=== PATIENT | female | born 1960 | race Caucasian/White ===

== ENCOUNTER → 2024-12-02 13:05 | Outpatient (BNVA) | payer MEDICARE, MEDICAID, SELFPAY | PROVIDERS: PCP Physician Assistant; Referring Provider Physician Assistant; Visit Provider Physician Assistant Surgical | DX: J44.9 Chronic obstructive pulmonary disease, unspecified (principal); R06.02 Shortness of breath; F17.210 Nicotine dependence, cigarettes, uncomplicated | CPT/HCPCS: 36415; 99203 ==

== ENCOUNTER 2024-12-02 15:00 | Outpatient (REF) | payer MEDICARE, MEDICAID, SELFPAY ==
[2024-12-02 16:07] LABS: Abs Immature Grans 0.04 10^3/uL (0.0-0.06); HCT 42.1 % (36.0-46.0); HGB 13.7 g/dL (11.2-15.7); Immature Grans % 0.4 %; MCH 27.6 pg (27.0-33.0); MCHC 32.5 % (32.0-36.0); MCV 85 fL (80-95); MPV 8.9 fL (8.0-11.0); Platelet Count 519 10^3/uL (130-400); RBC 4.97 10^6/uL (3.93-5.22); RDW 15.9 % (11.7-14.6); RDW-SD 48.8 fL; WBC 9.77 10^3/uL (4.4-10.8)
== END 2024-12-02 15:01 | disposition home or self-care (01) ==
LOC: LBN 15:00
PROVIDERS: PCP Physician Assistant; Visit Provider Physician Assistant Surgical
DX: J44.9 Chronic obstructive pulmonary disease, unspecified (principal)
CPT/HCPCS: 82785; 85025

== ENCOUNTER → 2025-01-29 12:23 | Outpatient (BNVA) | payer MEDICARE, MEDICAID, SELFPAY | PROVIDERS: PCP Physician Assistant; Referring Provider Physician Assistant; Visit Provider Physician Assistant Surgical | DX: J45.909 Unspecified asthma, uncomplicated (principal); R06.02 Shortness of breath; J44.9 Chronic obstructive pulmonary disease, unspecified; F17.210 Nicotine dependence, cigarettes, uncomplicated | CPT/HCPCS: 99214; 36415 ==

== ENCOUNTER 2025-01-29 13:46 | Outpatient (REF) | payer MEDICARE, MEDICAID, SELFPAY ==
[2025-02-02 16:32] LABS: Candida Albicans (Monilia),IgE <0.10 kU/L (<0.70); Goldenrod IgE <0.10 kU/L (<0.70); House Dust/Greer Lab, IgE <0.10 kU/L (<0.70); Spruce, IgE <0.10 kU/L (<0.70)
== END 2025-01-29 13:47 | disposition home or self-care (01) ==
LOC: LBN 13:46
PROVIDERS: PCP Physician Assistant; Visit Provider Physician Assistant Surgical
DX: J45.909 Unspecified asthma, uncomplicated (principal)
CPT/HCPCS: 84307; 86003